=== PATIENT | female | born 1990 | race Caucasian/White ===

== ENCOUNTER → 2023-07-21 09:28 | Outpatient (REF) | payer BC, SELFPAY | LOC: HWRAD 09:28 | PROVIDERS: ATTENDING PHYSICIAN Nurse Practitioner Obstetrics & Gynecology; FAMILY PHYSICIAN Student in an Organized Health Care Education/Training Program | DX: R10.2 Pelvic and perineal pain (principal) | CPT/HCPCS: 76830; 76856 ==

== ENCOUNTER → 2024-03-14 08:57 | Outpatient (REF) | payer BC, SELFPAY | LOC: WDC 08:57 | PROVIDERS: ATTENDING PHYSICIAN Nurse Practitioner Family | DX: N64.4 Mastodynia (principal); N63.10 Unspecified lump in the right breast, unspecified quadrant; N63.12 Unspecified lump in the right breast, upper inner quadrant | CPT/HCPCS: 76642; 77062; 77066 ==

== ENCOUNTER → 2024-12-21 10:21 | Outpatient (REF) | payer BC, SELFPAY | LOC: PNTC 10:21 | PROVIDERS: ATTENDING PHYSICIAN Obstetrics & Gynecology | DX: O09.522 Supervision of elderly multigravida, second trimester (principal); O34.211 Maternal care for low transverse scar from previous cesarean delivery; O09.292 Supervision of pregnancy with other poor reproductive or obstetric history, second trimester | CPT/HCPCS: 76816 ==

== ENCOUNTER → 2024-12-27 14:23 | Outpatient (REF) | payer BC, SELFPAY | LOC: WDC 14:23 | PROVIDERS: ATTENDING PHYSICIAN Physician Assistant Medical | DX: R22.32 Localized swelling, mass and lump, left upper limb (principal) | CPT/HCPCS: 76642 ==

== ENCOUNTER 2025-03-12 10:10 | Inpatient (IN) | payer BC, SELFPAY ==
[2025-03-12] MEDS: LR 1000 IV (10:48)
[2025-03-12 10:49] VITALS: BP 122/70; BMI 28.4
[2025-03-12 11:02] LABS: Hematocrit 34.4 % (37.0-47.0); Hemoglobin 11.9 g/dL (12.0-16.0); Mean Corp Hgb Conc. 34.6 g/dL (33.0-37.0); Mean Corpuscular Volume 90.8 fL (81.0-99.0); Platelet Count 292 10^3/uL (130-400); Red Cell Dist. Width 12.8 % (11.5-14.5)
[2025-03-12] MEDS: BICITRA 30 ML PO (11:25)
[2025-03-12] MEDS: TYLENOL 975 MG PO (11:25)
[2025-03-12] MEDS: ANCEF 10 IV (11:37)
[2025-03-12] MEDS: CLEOCIN 50 IV (11:37)
[2025-03-12] MEDS: TORADOL 15 MG IV ×2 (17:41→23:56)
[2025-03-12] MEDS: COLACE 100 MG PO (20:15)
[2025-03-13] MEDS: TORADOL 15 MG IV ×2 (05:07→11:47)
[2025-03-13 05:42] LABS: Hematocrit 28.9 % (37.0-47.0); Hemoglobin 9.9 g/dL (12.0-16.0); Mean Corp Hgb Conc. 34.3 g/dL (33.0-37.0); Mean Corpuscular Volume 96.3 fL (81.0-99.0); Platelet Count 247 10^3/uL (130-400); Red Cell Dist. Width 12.8 % (11.5-14.5)
[2025-03-13] MEDS: FEOSOL 325 MG PO (08:00)
[2025-03-13] MEDS: PRENATAL PLUS 1 TABLET PO (08:00)
[2025-03-13] MEDS: COLACE 100 MG PO ×2 (08:00→21:00)
--- NOTE | 2025-03-13 09:39 | W.PN.ANS.POP ---
Anesthesia Post Operative
- Anesthesia Post Op Note
Vital Signs Stable-See Nursing Note: Yes
Airway Patent: Yes
Adequate Pain Control: Yes
Change in Mental Status: No
Current Postoperative Nausea & Vomiting: No
Anesthesia Complications: No
General Anesthetic Recall: No
Unplanned Admission: No
Post Op Hydration Adequate: Yes
[2025-03-13] MEDS: TYLENOL 650 MG PO ×3 (10:32→21:21)
[2025-03-13 11:19] LABS: Syphilis/T. pallidum Ab Reflex Negative (Negative)
[2025-03-13] MEDS: MOTRIN 600 MG PO (18:09)
[2025-03-14] MEDS: MOTRIN 600 MG PO ×2 (00:38→08:33)
--- NOTE | 2025-03-14 03:00 | DOWNTIME ---
There was a [employer] Downtime on 03/14/2025 from 0100 to 03/14/2025 at 0255. Downtime documentation of patient's care, including medication administrations, has been reconciled in the electronic record per guidelines. Refer to the
patient's paper chart under the miscellaneous tab to see printed paper medication records and downtime forms.
[2025-03-14] MEDS: TYLENOL 650 MG PO ×2 (05:03→12:03)
[2025-03-14] MEDS: FEOSOL 325 MG PO (08:28)
[2025-03-14] MEDS: COLACE 100 MG PO (08:28)
[2025-03-14] MEDS: PRENATAL PLUS 1 TABLET PO (08:28)
== END 2025-03-14 13:10 | disposition home or self-care (01) | DRG 785 ==
LOC: LDRP 10:10
PROVIDERS: ADMITTING PHYSICIAN Obstetrics & Gynecology
PROC: 0UB70ZZ Excision of Bilateral Fallopian Tubes, Open Approach (ICD-10-PCS; 2025-03-12)
PROC: 10D00Z1 Extraction of Products of Conception, Low, Open Approach (ICD-10-PCS; 2025-03-12)
DX: O34.211 Maternal care for low transverse scar from previous cesarean delivery (principal); N85.8 Other specified noninflammatory disorders of uterus; Z3A.39 39 weeks gestation of pregnancy; Z37.0 Single live birth; Z30.2 Encounter for sterilization; O77.0 Labor and delivery complicated by meconium in amniotic fluid
CPT/HCPCS: 36415; 58605; 85027; 86780; 86850; 86900; 86901; 88302; 88307